=== PATIENT | male | born 1960 | race Caucasian/White ===

== ENCOUNTER 2018-04-23 03:01 | Emergency (ER) | payer MEDICAID ==
[~2018-04-23] VITALS: Ht 177.8 cm; Wt 79.4 kg
[2018-04-23 04:03] VITALS: BP 121/82
[2018-04-23] MEDS ORDERED: cefTRIAXone SOD 1,000 MG VL IM ONE (04:30)
[2018-04-23] MEDS ORDERED: HYDROcodone-ACET 10/325MG TAB PO ONE (04:30)
== END 2018-04-23 05:06 | disposition home or self-care (01) ==
LOC: ER 03:02
DX: L02.811 Cutaneous abscess of head [any part, except face] (principal); Z90.49 Acquired absence of other specified parts of digestive tract
CPT/HCPCS: 10060; 70450; 96372; 99284; J0696